=== PATIENT | female | born 1965 | race Caucasian/White ===

== ENCOUNTER 2016-02-21 04:29 | Emergency (ER) | payer MEDICARE, MEDICAID ==
[~2016-02-21] VITALS: Ht 157.5 cm; Wt 63.5 kg
[2016-02-21] MEDS ORDERED: Morphine Sulfate 4mg/ml Inj ONE (06:18)
[2016-02-21] MEDS ORDERED: Morphine Sulfate 4mg/ml Inj IM ONE (06:30)
[2016-02-21 06:59] VITALS: BP 112/81
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
== END 2016-02-21 06:59 | disposition home or self-care (01) ==
LOC: EDBD 04:29 → EMR 05:54
DX: M25.572 Pain in left ankle and joints of left foot (principal); M25.571 Pain in right ankle and joints of right foot; R60.0 Localized edema
CPT/HCPCS: 96372; 99283; J2270